=== PATIENT | female | born 1940 | race Caucasian/White ===

== ENCOUNTER 2016-09-26 11:30 | Inpatient (IN) ==
[2016-09-26] MEDS ORDERED: [UNRECOGNIZED DRUG - OTHER] PO SCH (16:15)
[2016-09-26] MEDS ORDERED: VITAMIN D3 PO SCH (16:15)
[2016-09-26] MEDS ORDERED: ALENDRONATE SODIUM PO SCH (16:15)
[2016-09-26 16:48] LABS: MANUAL DIFF NEEDED? NO
[2016-09-26 16:55] LABS: BASO% 0.6 % (0.0-0.8); EOS# 0.07 X1000 (0.0-0.7); EOS% 1.1 % (0.0-10.0); HEMATOCRIT 42.2 % (37.0-47.0); HEMOGLOBIN 14.5 g/dL (12.0-16.0); LYMPH% 28.5 % (20.5-51.1); MCH 31.3 PG (27-31); MCHC 34.4 g/dL (33-37); MCV 91.1 FL (81-99); MONO# 0.45 X1000 (0.11-0.59); MONO% 7.1 % (1.7-9.3); NEUT% 62.7 % (42.2-75.2); PLT 279 X1000 (130-400); RBC 4.63 XMIL (4.2-5.4)
[2016-09-26 17:22] LABS: HEMOGLOBIN A1C 5.8 % (4.8-6.0)
[2016-09-26 17:23] LABS: AGAP 11; ALBUMIN 3.4 g/dL (3.5-5.0); ALKALINE PHOSPHATASE 43 U/L (32-104); BUN 18 mg/dL (8-22); CALCIUM 8.8 mg/dL (8.8-10.2); CHLORIDE 105 mmol/L (98-107); COSMO 286; GOT 16 U/L (10-30); GPT 10 U/L (10-36); POTASSIUM 3.7 mmol/L (3.5-5.1); SODIUM 143 mmol/L (136-145); TCO2 27 mmol/L (25-35); TOTAL BILIRUBIN 0.34 mg/dL (0.20-1.00); TOTAL PROTEIN 6.3 g/dL (6.3-8.3)
[2016-09-26] MEDS: INVANZ 1 GM/NS 1 GM/50 ML IVPB IV SCH (17:32)
--- NOTE | 2016-09-26 22:10 | HISTORY AND PHYSICAL ---
CHIEF COMPLAINT: Urinary tract infection symptoms, plus stent. Unable to improve with outpatient medical management. Subsequently urine cultures last week reported extended-spectrum beta- lactamase Escherichia coli. It is resistant to the antibiotics. Needs intravenous Invanz. As a result, she has been hospitalized. The patient was seen in my office last 07/25/2016. PAST MEDICAL HISTORY: Chronic anxiety. Overactive bladder. COPD. Dementia. Hypertension. Depression. Osteopenia. PAST SURGICAL HISTORY: Breast lumpectomy. Hysterectomy. MEDICINES: Fosamax 70, 1 tablet once a week. Ditropan 5 mg daily. Potassium 10 mEq daily. Iron sulfate 325 daily. Seroquel 25 daily. Celexa 40 daily. Lasix 20 daily. Prednisone 5 daily. Klonopin 1 mg daily. Aricept 5 mg daily. ALLERGIES: Iodine. SOCIAL HISTORY: . Lives in [place]. No smoking. No alcohol. No drug abuse. FAMILY HISTORY: Father at the age of 50. Mom at age 40, cause was not known. HEALTH MAINTENANCE: Flu vaccine 2015, pneumonia in 2010, colonoscopy 2012, by short DEXA scan 2012, REVIEW OF SYSTEMS: HEENT: No headache. No vision problem. No earache. No sore throat. Neck: No goiter. No lymphadenopathy. Cardiopulmonary: No chest pain, shortness of breath, PND, orthopnea. GI: No nausea, vomiting, abdominal pain. : History of hesitancy, frequency, dysuria. Musculoskeletal: No swelling of feet. No joint pains. Neurologic: Nonfocal. PHYSICAL EXAMINATION: VITAL SIGNS: Stable. 5 feet, 99 pounds. HEENT: Within normal limits. NECK: Supple. No lymphadenopathy. No goiter. CHEST: Clear to auscultation. HEART: Sounds are regular. ABDOMEN: Belly is soft, nontender. Good bowel sounds. No peripheral edema, cyanosis, clubbing. NEUROLOGIC: Nonfocal. INVESTIGATIONS: CBC: White cell count 6.2, hematocrit 42, platelets 279,000. SMA7 is normal. A1c 5.8. Urine cultures on 09/17/2016, E. coli, ESBL positive. ASSESSMENT AND PLAN: 1. A 76-year-old white female, admitted to the hospital with E. Coli, extended-spectrum beta- lactamase. Intravenous Invanz. 2. Overactive bladder. On oxybutynin. 3. Chronic obstructive pulmonary disease, on low dose of prednisolone. 4. Dementia with agitation. On Aricept and Seroquel. 5. Osteoporosis, on Fosamax with vitamin D. 6. Chronic anxiety, on Klonopin. 7. Depression, on Celexa. We slowly swapped the medicines to the Macrobid after the intravenous Invanz and we will follow up. cc: Norris Buchanan MD
[2016-09-26] MEDS: ARICEPT PO SCH (22:23)
[2016-09-26] MEDS: SEROQUEL PO SCH (22:23)
--- NOTE | 2016-09-27 08:37 | Diag Imaging Result Document ---
PROCEDURE NAME: US RENAL 2 (RETROPER) COMPLETE - 09/27/2016 RENAL ULTRASOUND: COMPARISON: None. FINDINGS: The kidneys and urinary bladder are normal. The right kidney measures 9.4 x 4.1 x 3.3 cm. The left kidney measured measures 9.6 x 4.1 x 3.9 cm. Cortex measures 7 mm bilaterally. IMPRESSION: Negative exam.
[2016-09-27] MEDS: LASIX PO SCH (08:53)
[2016-09-27] MEDS: KLOR-CON PO SCH (08:53)
[2016-09-27] MEDS: FERROUS SULFATE PO SCH (08:53)
[2016-09-27] MEDS: CELEXA PO SCH (08:53)
[2016-09-27] MEDS: DITROPAN PO SCH (08:53)
[2016-09-27] MEDS: ORAPRED LIQUID PO SCH (08:58)
[2016-09-27] MEDS: KLONOPIN PO SCH (08:59)
[2016-09-27] MEDS ORDERED: ORAPRED LIQUID PO SCH (09:00)
[2016-09-27] MEDS: INVANZ 1 GM/NS 1 GM/50 ML IVPB IV SCH ×2 (15:54→16:06)
[2016-09-27] MEDS: ZOFRAN IV PRN (18:31)
--- NOTE | 2016-09-27 18:50 | PROGRESS NOTE ---
DATE: 09/27/2016 SUBJECTIVE: Patient is a poor historian. Complains of lower abdominal pain. Repeat urine culture was done. Scheduled for ultrasound of the kidneys. No family member was there at the bedside. PHYSICAL EXAMINATION: Vital Signs: Stable. HEENT: Within normal limits. Neck: Supple. No lymphadenopathy. No goiter. Chest: Clear. Heart: Sounds are regular. Abdomen: Belly is soft. No signs of peritonitis. : Wearing diapers. No obvious deficits noted. INVESTIGATIONS: CBC, SMA 12 is normal. Urine cultures growing gram-negative rods. ASSESSMENT AND PLAN: 1. Abdominal pain due to cystitis due to ESBL E. Coli, not able to improve with outpatient treatment. Symptomatic. IV Invanz. Ultrasound of the kidneys negative for stones and follow up on culture and sensitivity. 2. Continue present medical therapy for underlying medical problems. 3. Chronic obstructive pulmonary disease. Decrease the prednisone 2.5 mg daily. We will discuss with the family. LEVEL OF CARE: 25 minutes. cc: Norris Buchanan MD
[2016-09-27] MEDS: SEROQUEL PO SCH (20:52)
[2016-09-27] MEDS: ARICEPT PO SCH (20:52)
[2016-09-28] MEDS: LASIX PO SCH (09:06)
[2016-09-28] MEDS: FERROUS SULFATE PO SCH (09:06)
[2016-09-28] MEDS: DITROPAN PO SCH (09:06)
[2016-09-28] MEDS: KLONOPIN PO SCH (09:06)
[2016-09-28] MEDS: KLOR-CON PO SCH (09:06)
[2016-09-28] MEDS: ORAPRED LIQUID PO SCH ×2 (09:07→12:30)
[2016-09-28] MEDS: CELEXA PO SCH (09:07)
--- NOTE | 2016-09-28 10:25 | PROGRESS NOTE ---
DATE: 09/28/2016 SUBJECTIVE: The patient is a poor historian, nevertheless lower abdominal pain is improving after the antibiotics. REVIEW OF SYSTEMS: None reported. PHYSICAL EXAMINATION: Vital Signs: Afebrile, stable. I's and O's are positive 230. HEENT Exam: Within normal limits. Neck: Supple. No lymphadenopathy. No goiter. Chest: Clear to auscultation. Heart: Sounds are regular. Abdomen: Belly is soft, nontender. Good bowel sounds. Neurologic: No neurological deficits. INVESTIGATIONS: Urine cultures gram-negative rods. Pending the SHIRT FOLDER. ASSESSMENT AND PLAN: 1. Extended-spectrum beta-lactamases, positive Escherichia coli, not able to improve. Continue on IV Invanz for the next 3 days, it was started since 09/26. 2. Bladder spasms, on oxybutynin. 3. Ultrasound of the renals are negative. 4. Dementia, on Aricept. 5. Depression, on Celexa. 6. Agitation, Seroquel at nighttime. 7. Chronic obstructive pulmonary disease, on low dose prednisone. 8. Continue IV Invanz over the weekend, and then we will discuss with the son about further plans. 9. She is going to stay over the weekend and Dr. Busch is going to follow up. cc: Norris Buchanan MD
[2016-09-28] MEDS: INVANZ 1 GM/NS 1 GM/50 ML IVPB IV SCH (17:20)
[2016-09-28] MEDS: SEROQUEL PO SCH (22:53)
[2016-09-28] MEDS: ZOFRAN IV PRN (22:53)
[2016-09-28] MEDS: ARICEPT PO SCH (22:53)
[2016-09-29] MEDS: KLONOPIN PO SCH (10:24)
[2016-09-29] MEDS: FERROUS SULFATE PO SCH (10:24)
[2016-09-29] MEDS: DITROPAN PO SCH (10:24)
[2016-09-29] MEDS: LASIX PO SCH (10:24)
[2016-09-29] MEDS: CELEXA PO SCH (10:24)
[2016-09-29] MEDS: KLOR-CON PO SCH (10:24)
[2016-09-29] MEDS: ORAPRED LIQUID PO SCH (10:26)
--- NOTE | 2016-09-29 11:27 | PROGRESS NOTE ---
DATE: 09/29/2016 Ms. Carmona who is a 76-year-old female has E. coli urinary tract infection which is ESBL positive. She is on IV Invanz. Her vital signs are stable. Lungs: Are clear. Abdomen: Is soft, nontender. We will continue with the current management. -3 cc: MD Norris Calhoun MD
[2016-09-29] MEDS: INVANZ 1 GM/NS 1 GM/50 ML IVPB IV SCH (16:56)
[2016-09-29] MEDS: SEROQUEL PO SCH (22:30)
[2016-09-29] MEDS: ARICEPT PO SCH (22:32)
[2016-09-30] MEDS: KLONOPIN PO SCH (09:35)
[2016-09-30] MEDS: DITROPAN PO SCH (09:35)
[2016-09-30] MEDS: LASIX PO SCH (09:35)
[2016-09-30] MEDS: FERROUS SULFATE PO SCH (09:35)
[2016-09-30] MEDS: CELEXA PO SCH (09:35)
[2016-09-30] MEDS: KLOR-CON PO SCH (09:35)
[2016-09-30] MEDS: ZOFRAN IV PRN (13:33)
--- NOTE | 2016-09-30 14:30 | PROGRESS NOTE ---
DATE: 09/30/2016 Ms. Carmona has a history of ESBL positive E. coli urinary tract infection. She is on Invanz. Her vital signs are stable. Overall condition is unchanged. -5 cc: MD Norris Calhoun MD
[2016-09-30] MEDS: ORAPRED LIQUID PO SCH (16:00)
[2016-09-30] MEDS: INVANZ 1 GM/NS 1 GM/50 ML IVPB IV SCH (16:01)
[2016-09-30] MEDS: ARICEPT PO SCH (23:57)
[2016-09-30] MEDS: SEROQUEL PO SCH (23:57)
[2016-10-01] MEDS: FERROUS SULFATE PO SCH (09:04)
[2016-10-01] MEDS: KLONOPIN PO SCH (09:04)
[2016-10-01] MEDS: LASIX PO SCH (09:04)
[2016-10-01] MEDS: KLOR-CON PO SCH (09:04)
[2016-10-01] MEDS: DITROPAN PO SCH (09:04)
[2016-10-01] MEDS: CELEXA PO SCH (09:04)
[2016-10-01] MEDS: ORAPRED LIQUID PO SCH (09:05)
--- NOTE | 2016-10-01 09:26 | PROGRESS NOTE ---
DATE: 10/01/2016 SUBJECTIVE: Patient is improving. Lower abdominal pain. Poor historian. No family was there. REVIEW OF SYSTEMS: The rest of the review of systems is normal. PHYSICAL EXAMINATION: Vital Signs: Afebrile. Vitals are stable. I's and O's are even. HEENT: Within normal limits. Neck: Supple. No lymphadenopathy. Chest: Clear. Heart: Sounds are regular. Abdomen: Belly is soft, nontender. Good bowel sounds. Neurologic: Nonfocal. INVESTIGATIONS: Repeat urine cultures on 09/26/2016 were positive for E. coli, ESBL positive, only sensitive for imipenem. ASSESSMENT AND PLAN: Extended spectrum beta-lactamase Escherichia coli. Day 5 of imipenem. Will continue 7 days and then switched to Macrobid. Ultrasound of the kidneys was negative. Overactive bladder, on Ditropan. Continue present medical therapy for depression and dementia. We will discuss with the family. LEVEL OF DOCUMENTATION: 25 minutes. cc: Norris Buchanan MD
[2016-10-01] MEDS: TYLENOL PO PRN ×2 (15:16→21:20)
[2016-10-01] MEDS: INVANZ 1 GM/NS 1 GM/50 ML IVPB IV SCH (17:13)
[2016-10-01] MEDS: ARICEPT PO SCH (21:20)
[2016-10-02] MEDS: SEROQUEL PO SCH ×2 (06:28→22:15)
[2016-10-02] MEDS: TYLENOL PO PRN ×4 (06:36→22:23)
[2016-10-02] MEDS: KLOR-CON PO SCH (10:50)
[2016-10-02] MEDS: DITROPAN PO SCH (10:51)
[2016-10-02] MEDS: LASIX PO SCH (10:51)
[2016-10-02] MEDS: ORAPRED LIQUID PO SCH ×2 (10:51→18:33)
[2016-10-02] MEDS: CELEXA PO SCH (10:51)
[2016-10-02] MEDS: FERROUS SULFATE PO SCH (10:51)
[2016-10-02] MEDS: INVANZ 1 GM/NS 1 GM/50 ML IVPB IV SCH (17:05)
--- NOTE | 2016-10-02 18:27 | PROGRESS NOTE ---
DATE: 10/02/2016 SUBJECTIVE: Abdominal pain is improving. Some pain requiring Tylenol. Last 24 hours is improving. No family member was there at the bedside. REVIEW OF SYSTEMS: None reported. EXAM: Vital Signs: Stable. Blood pressure is on the low side. The patient is eating very well. HEENT: Within normal limits. Neck: Supple. No lymphadenopathy. Chest: Clear. Heart: Sounds are regular. Abdomen: Belly is soft, nontender. Good bowel sounds. ASSESSMENT AND PLAN: ESBL E. coli day 7 imipenem. Changed to Macrobid. Hopefully will be discharged on . We will discuss with the family and chronic bladder spasms on oxybutynin. Continue present medical therapy. LEVEL OF DOCUMENTATION: 15 minutes. cc: Norris Buchanan MD
[2016-10-02] MEDS: KLONOPIN PO SCH (18:33)
[2016-10-02] MEDS: ARICEPT PO SCH (22:15)
[2016-10-02] MEDS ORDERED: CALMOSEPTINE OINTMENT TOP PRN (22:17)
--- NOTE | 2016-10-03 09:01 | PROGRESS NOTE ---
DATE: 10/03/2016 SUBJECTIVE: No complaints. Patient is resting well. Decreased abdominal pain. REVIEW OF SYSTEMS: None reported. PHYSICAL EXAMINATION: Vital Signs: Stable. HEENT: Within normal limits. Neck: Supple. No lymphadenopathy. No goiter. Chest: Clear to auscultation. Heart: Sounds are regular. Abdomen: Belly is soft, nontender. Good bowel sounds. Neurological: No deficits. ASSESSMENT AND PLAN: 1. Extended-spectrum beta-lactamase Escherichia coli. Continue on IV Invanz 7 days and then change to Macrobid. Will DC home tomorrow. We will discuss with the son. 2. Chronic chronic obstructive pulmonary disease. Slowly discontinue the steroids. 3. Anorexia. LEVEL OF DOCUMENTATION: 15 minutes. cc: Norris Buchanan MD
[2016-10-03] MEDS: FERROUS SULFATE PO SCH (09:14)
[2016-10-03] MEDS: LASIX PO SCH (09:14)
[2016-10-03] MEDS: KLOR-CON PO SCH (09:14)
[2016-10-03] MEDS: KLONOPIN PO SCH (09:14)
[2016-10-03] MEDS: CELEXA PO SCH (09:14)
[2016-10-03] MEDS: DITROPAN PO SCH (09:14)
[2016-10-03] MEDS: TYLENOL PO PRN (14:45)
[2016-10-03] MEDS: INVANZ 1 GM/NS 1 GM/50 ML IVPB IV SCH (16:36)
[2016-10-03] MEDS: SEROQUEL PO SCH (20:54)
[2016-10-03] MEDS: ARICEPT PO SCH (20:54)
[2016-10-04] MEDS: LASIX PO SCH (08:45)
[2016-10-04] MEDS: DITROPAN PO SCH (08:45)
[2016-10-04] MEDS: KLONOPIN PO SCH (08:45)
[2016-10-04] MEDS: KLOR-CON PO SCH (08:45)
[2016-10-04] MEDS: FERROUS SULFATE PO SCH (08:45)
[2016-10-04] MEDS: CELEXA PO SCH (08:46)
[2016-10-04 12:36] VITALS: BP 105/52
--- NOTE | 2016-10-06 18:47 | DISCHARGE SUMMARY ---
ADMISSION DATE: 09/26/2016 DISCHARGE DATE: 10/04/2016 DISCHARGING DIAGNOSES: 1. Extended-spectrum beta lactamase Escherichia coli infection. 2. Chronic anxiety. 3. Overactive bladder. 4. Chronic obstructive pulmonary disease. 5. Dementia. 6. Hypertension. 7. Osteopenia. 8. Depression. BRIEF HISTORY: Please see the H and P that was done 09/26/2016. In brief, she is a 76-year-old, white female, who has been admitted to the hospital with abdominal pain associated with recurrent ESBL E. coli infection unable to treat as outpatient. As a result, the patient was hospitalized with IV Invanz for 7 days. The patient does not have any support. Subsequently changed to the Macrodantin. Rest of the hospital course was uneventful. LABORATORIES FOLLOWS: CBC: White cell count 6.3, hematocrit 42, platelet 279,000. SMA 7 is normal. LFTs are normal. Urine is positive for the ESBL and E. coli. DISCHARGE INSTRUCTIONS: Fosamax with vitamin D once a week. Ditropan 5 mg as needed. Lasix and potassium as needed. Discontinue prednisone. Seroquel 25 at bedtime. Celexa 40 in the morning. Klonopin 1 mg daily. Aricept 5 daily. Macrobid 100 p.o. b.i.d. Outpatient home health care services and follow up in my office in 10 days. cc: Norris Buchanan MD
== END 2016-10-04 16:13 | disposition home health service (06) ==
LOC: DIRADM 11:30 → 4N 15:34
PROVIDERS: ADMIT Internal Medicine; ATTEND Internal Medicine